=== PATIENT | male | born 1955 | race Caucasian/White ===

== ENCOUNTER 2022-06-30 12:10 | Inpatient (IN) | payer OTHER ==
[~2022-06-30] VITALS: Ht 185.4 cm; Wt 67.0 kg
[~2022-06-30 12:10] MED LIST: DIVA1TAB39 PO; HALDOL; LORA-205; QUET100T38; SIMV10TA84 PO; URSO300C9 PO
[2022-06-30] MEDS ORDERED: ADENOSINE 6 MG/2 ML INJ IV ONE ×3 (12:30→13:00)
[2022-06-30] MEDS ORDERED: METOPROLOL TARTRATE 1MG/1ML-5ML VIAL IV ONE ×2 (12:40→13:00)
[2022-06-30] MEDS ORDERED: SODIUM CHLORIDE 0.9% 1,000 ML IV ONE ×2 (13:15→14:30)
[2022-06-30 13:41] LABS: Hematocrit 28.7 % (41.0-53.0); Hemoglobin 9.1 g/dL (13.5-17.5); Mean Corpuscular Hemoglobin 26.7 pg (28.0-32.0); Mean Corpuscular Hgb Conc. 31.7 g/dL (32.0-36.0); Mean Corpuscular Volume 84.1 fL (80.0-100.0); Red Blood Cells 3.41 10^6/uL (4.5-5.90); Red Cell Distribution Width 17.3 % (11.8-14.3)
[2022-06-30 13:51] LABS: Basophils % (manual) 0 (0.0-2.0); Blast Cells 0; Eosinophils % (manual) 0 (0-7); Metamyelocytes % 0; Monocytes % (manual) 0 (0-12); Myelocytes % 0; Promyelocytes % 0; Reactive Lymphocytes 0
[2022-06-30 13:59] LABS: Lactic Acid w/Reflex 5.9 mmol/L (0.4-2.0); Potassium 3.6 mmol/L (3.5-5.1)
[2022-06-30 14:04] LABS: Albumin 2.2 g/dL (3.4-5.0); BUN/Creatinine Ratio 19.8; Bilirubin, Total 0.5 mg/dL (0.2-1.0); Calcium 7.6 mg/dL (8.5-10.1); Magnesium 2.3 mg/dL (1.6-2.6)
[2022-06-30] MEDS ORDERED: cefTRIAXone 1GM/50ML D5W 50 ML IV ONE (14:30)
[2022-06-30] MEDS ORDERED: CLINDAMYCIN 600MG IV 50 ML IV ONE (14:30)
[2022-06-30] MEDS ORDERED: ONDANSETRON HCL 4 MG/2 ML VIAL IV PRN (14:45)
[2022-06-30] MEDS ORDERED: CEFEPIME 1GM/ 50ML 50 ML IV ONE (14:45)
[2022-06-30] MEDS ORDERED: ACETAMINOPHEN 325 MG TAB PO PRN (14:45)
[2022-06-30] MEDS ORDERED: SODIUM CHLORIDE 0.9% 2,000 ML IV ONE (14:45)
[2022-06-30] MEDS ORDERED: NITROGLYCERIN 0.4 MG SL TAB SL PRN (14:45)
[2022-06-30] MEDS ORDERED: VANCOMYCIN PER PHARMACY 0 MG IV SCH ×2 (14:45→15:45)
[2022-06-30] MEDS ORDERED: PANTOPRAZOLE 40 MG/10 ML VIAL INJ IV ONE (14:45)
[2022-06-30] MEDS ORDERED: VANCOMYCIN 1GM/250ML 250 ML IV ONE (15:15)
[2022-06-30 15:29] LABS: Band Neutrophils % (manual) 3; Lymphocytes % (manual) 1 (10.0-50.0)
[2022-06-30] MEDS: SODIUM CHLORIDE 0.9% 1,000 ML IV SCH (19:49)
[2022-06-30] MEDS ORDERED: CEFEPIME 1GM/ 50ML 50 ML IV SCH (22:00)
[2022-06-30] MEDS: ASCORBIC ACID 500 MG TAB PO SCH (22:23)
[2022-06-30 23:20] VITALS: BP 136/70
[2022-07-01] MEDS: SODIUM CHLORIDE 0.9% 1,000 ML IV SCH ×3 (00:45→20:45)
[2022-07-01] MEDS ORDERED: HYDROcodone-ACET 5/325MG TAB PO PRN (03:30)
[2022-07-01 05:00] VITALS: BP 117/72
[2022-07-01 06:25] LABS: Albumin 1.8 g/dL (3.4-5.0); BUN/Creatinine Ratio 27.5; Calcium 7.4 mg/dL (8.5-10.1); Potassium 3.2 mmol/L (3.5-5.1)
[2022-07-01 06:37] LABS: Bilirubin, Total 0.4 mg/dL (0.2-1.0); Total Protein 4.4 g/dL (6.4-8.2)
[2022-07-01] MEDS: CEFEPIME 1GM/ 50ML 50 ML IV SCH ×2 (08:00→16:29)
[2022-07-01 09:00] VITALS: BP 109/55
[2022-07-01] MEDS ORDERED: VANCOMYCIN 1GM/250ML 250 ML IV ONE (09:45)
[2022-07-01] MEDS ORDERED: ENOXAPARIN SOD 40 MG/0.4 ML SYRINGE SC SCH (10:00)
[2022-07-01] MEDS: ASCORBIC ACID 500 MG TAB PO SCH ×2 (10:03→21:02)
[2022-07-01] MEDS: ZINC SULFATE 220mg CAP or TAB PO SCH (10:03)
[2022-07-01] MEDS: MULTIPLE VITAMIN TAB PO SCH (10:03)
[2022-07-01] MEDS: PANTOPRAZOLE 40 MG/10 ML VIAL INJ IV SCH (10:05)
[2022-07-01] MEDS ORDERED: ADENOSINE 6 MG/2 ML INJ IV ONE (12:42)
[2022-07-01 13:00] VITALS: BP 115/6
[2022-07-01] MEDS ORDERED: HEPARIN DRIP/D5W 100UNITS/ML 250 ML IV SCH (14:45)
[2022-07-01 17:00] VITALS: BP 165/77
[2022-07-01 17:05] LABS: Basophils # (auto) 0 10 ^3/uL (0-0.2); Basophils % (auto) 0.2 % (0.0-2.0); Eosinophils # (auto) 0 10 ^3/uL (0-0.8); Eosinophils % (auto) 0.2 % (0.0-7.0); Hematocrit 25.4 % (41.0-53.0); Hemoglobin 7.7 g/dL (13.5-17.5); Lymphocytes # (auto) 0.6 10 ^3/uL (0.4-5.4); Lymphocytes % (auto) 5.6 % (10.0-50.0); Mean Corpuscular Hemoglobin 27.6 pg (28.0-32.0); Mean Corpuscular Hgb Conc. 30.5 g/dL (32.0-36.0); Mean Corpuscular Volume 90.4 fL (80.0-100.0); Monocytes # (auto) 0.6 10 ^3/uL (0-1.3); Nucleated Red Blood Cells % 0.1 %; Red Cell Distribution Width 18.6 % (11.8-14.3); White Blood Cell 10.2 10^3/uL (4.4-10.8)
[2022-07-01 17:13] LABS: INR 1.25 (0.9-1.15); Partial Thromboplastin Time 38.2 sec (24.6-33.4)
[2022-07-01] MEDS: VANCOMYCIN 1GM/250ML 250 ML IV SCH (21:01)
[2022-07-01 22:00] VITALS: BP 131/59
[2022-07-02] MEDS: CEFEPIME 1GM/ 50ML 50 ML IV SCH ×3 (00:05→16:22)
[2022-07-02 05:00] VITALS: BP 107/49
[2022-07-02] MEDS: VANCOMYCIN 1GM/250ML 250 ML IV SCH ×2 (05:48→16:21)
[2022-07-02 07:36] LABS: INR 1.18 (0.9-1.15)
[2022-07-02] MEDS ORDERED: HEPARIN SODIUM (PORCINE) 5000 UNITS/ML 1ML VIAL IV ONE (08:15)
[2022-07-02] MEDS: SODIUM CHLORIDE 0.9% 1,000 ML IV SCH (08:16)
[2022-07-02] MEDS ORDERED: HEPARIN DRIP/D5W 100UNITS/ML 250 ML IV SCH (08:30)
[2022-07-02 09:00] VITALS: BP 140/63
[2022-07-02] MEDS: MULTIPLE VITAMIN TAB PO SCH (09:47)
[2022-07-02] MEDS: PANTOPRAZOLE 40 MG/10 ML VIAL INJ IV SCH (09:47)
[2022-07-02] MEDS: ZINC SULFATE 220mg CAP or TAB PO SCH (09:47)
[2022-07-02] MEDS: ASCORBIC ACID 500 MG TAB PO SCH ×2 (09:48→21:37)
[2022-07-02] MEDS ORDERED: POTASSIUM EFFERVESENT TAB 25 MEQ PO ONE (12:45)
[2022-07-02 13:00] VITALS: BP 135/65
[2022-07-02] MEDS: LACTATED RINGER'S 1,000 ML IV SCH ×2 (16:20→21:43)
[2022-07-02] MEDS: HEPARIN DRIP/D5W 100UNITS/ML 250 ML IV SCH (16:24)
[2022-07-02 17:00] VITALS: BP 137/76
[2022-07-02] MEDS: MORPHINE SULFATE INJ 2 MG/ml SYRG IV PRN (18:43)
[2022-07-02 22:00] VITALS: BP 140/69
[2022-07-03] MEDS: HYDROcodone-ACET 5/325MG TAB PO PRN ×3 (00:32→18:03)
[2022-07-03] MEDS: VANCOMYCIN 1GM/250ML 250 ML IV SCH ×3 (00:32→22:29)
[2022-07-03] MEDS: CEFEPIME 1GM/ 50ML 50 ML IV SCH ×3 (01:39→17:11)
[2022-07-03] MEDS: LACTATED RINGER'S 1,000 ML IV SCH ×3 (04:45→22:40)
[2022-07-03 05:00] VITALS: BP 129/61
[2022-07-03 07:45] LABS: INR 1.19 (0.9-1.15); Partial Thromboplastin Time 49.3 sec (24.6-33.4)
[2022-07-03 08:00] VITALS: BP 140/69
[2022-07-03] MEDS: HEPARIN DRIP/D5W 100UNITS/ML 250 ML IV SCH (08:20)
[2022-07-03] MEDS: ASCORBIC ACID 500 MG TAB PO SCH ×2 (08:25→21:08)
[2022-07-03] MEDS: ZINC SULFATE 220mg CAP or TAB PO SCH (08:25)
[2022-07-03] MEDS: MULTIPLE VITAMIN TAB PO SCH (08:25)
[2022-07-03] MEDS: PANTOPRAZOLE 40 MG/10 ML VIAL INJ IV SCH (08:26)
[2022-07-03] MEDS ORDERED: HEPARIN DRIP/D5W 100UNITS/ML 250 ML IV SCH ×3 (08:30→15:30)
[2022-07-03 12:00] VITALS: BP 117/63
[2022-07-03] MEDS ORDERED: HEPARIN SODIUM (PORCINE) 5000 UNITS/ML 1ML VIAL IV ONE (15:30)
[2022-07-03 16:00] VITALS: BP 132/70
[2022-07-03 22:00] VITALS: BP 127/71
[2022-07-03 23:11] LABS: INR 1.25 (0.9-1.15)
[2022-07-03 23:18] LABS: Partial Thromboplastin Time 97.9 sec (24.6-33.4)
[2022-07-04] MEDS: CEFEPIME 1GM/ 50ML 50 ML IV SCH ×3 (00:39→17:01)
[2022-07-04] MEDS ORDERED: HEPARIN DRIP/D5W 100UNITS/ML 250 ML IV SCH (01:00)
[2022-07-04] MEDS: LACTATED RINGER'S 1,000 ML IV SCH ×3 (04:58→14:43)
[2022-07-04 05:00] VITALS: BP 127/53
[2022-07-04 07:42] LABS: INR 1.22 (0.9-1.15)
[2022-07-04 09:00] VITALS: BP 148/64
[2022-07-04] MEDS: MULTIPLE VITAMIN TAB PO SCH (10:00)
[2022-07-04] MEDS: ASCORBIC ACID 500 MG TAB PO SCH ×2 (10:00→22:02)
[2022-07-04] MEDS: ZINC SULFATE 220mg CAP or TAB PO SCH (10:00)
[2022-07-04] MEDS: VANCOMYCIN 1GM/250ML 250 ML IV SCH ×2 (10:16→18:36)
[2022-07-04] MEDS: PANTOPRAZOLE 40 MG/10 ML VIAL INJ IV SCH (10:16)
[2022-07-04] MEDS ORDERED: ADENOSINE 60 MG in GIVE UN-DILUTED 0 ML IV STA (11:27)
[2022-07-04 12:13] VITALS: BP 127/67
[2022-07-04 13:00] VITALS: BP 123/69
[2022-07-04 16:17] VITALS: BP 133/61
[2022-07-04 22:00] VITALS: BP 123/74
[2022-07-05] MEDS: VANCOMYCIN 1GM/250ML 250 ML IV SCH ×2 (04:20→13:46)
[2022-07-05] MEDS: LACTATED RINGER'S 1,000 ML IV SCH ×3 (04:45→15:27)
[2022-07-05 05:00] VITALS: BP 145/70
[2022-07-05 09:00] VITALS: BP 133/77
[2022-07-05] MEDS: CEFEPIME 1GM/ 50ML 50 ML IV SCH ×3 (09:54→18:01)
[2022-07-05] MEDS: ZINC SULFATE 220mg CAP or TAB PO SCH (09:54)
[2022-07-05] MEDS: ASCORBIC ACID 500 MG TAB PO SCH ×2 (09:55→22:00)
[2022-07-05] MEDS: MULTIPLE VITAMIN TAB PO SCH (09:55)
[2022-07-05] MEDS: PANTOPRAZOLE 40 MG/10 ML VIAL INJ IV SCH (10:00)
[2022-07-05 13:00] VITALS: BP 137/81
[2022-07-05 16:00] LABS: Basophils # (auto) 0 10 ^3/uL (0-0.2); Eosinophils # (auto) 0 10 ^3/uL (0-0.8); Red Blood Cells 3.02 10^6/uL (4.5-5.90); Red Cell Distribution Width 17.7 % (11.8-14.3); White Blood Cell 11.8 10^3/uL (4.4-10.8)
[2022-07-05 16:01] LABS: Basophils % (auto) 0.3 % (0.0-2.0); Eosinophils % (auto) 0.1 % (0.0-7.0); Hemoglobin 7.7 g/dL (13.5-17.5); Lymphocytes # (auto) 0.8 10 ^3/uL (0.4-5.4); Lymphocytes % (auto) 6.4 % (10.0-50.0); Mean Corpuscular Hemoglobin 25.7 pg (28.0-32.0); Mean Corpuscular Hgb Conc. 32.3 g/dL (32.0-36.0); Mean Corpuscular Volume 79.5 fL (80.0-100.0); Monocytes # (auto) 0.7 10 ^3/uL (0-1.3); Monocytes % (auto) 6.3 % (0.0-12.0); Neutrophils # (auto) 10.2 10 ^3/uL (1.6-8.6); Neutrophils % (auto) 86.9 % (37.0-80.0)
[2022-07-05 16:27] VITALS: BP 149/66
[2022-07-05 22:00] VITALS: BP 116/67
[2022-07-06] VITALS (11 sets, daily range): BP systolic 125–141; BP diastolic 60–73
[2022-07-06] MEDS: LACTATED RINGER'S 1,000 ML IV SCH ×3 (04:45→20:45)
[2022-07-06] MEDS: CEFEPIME 1GM/ 50ML 50 ML IV SCH ×3 (11:00→16:00)
[2022-07-06] MEDS: ZINC SULFATE 220mg CAP or TAB PO SCH (11:00)
[2022-07-06] MEDS: VANCOMYCIN 1GM/250ML 250 ML IV SCH ×3 (11:00→22:22)
[2022-07-06] MEDS: PANTOPRAZOLE 40 MG/10 ML VIAL INJ IV SCH (11:00)
[2022-07-06] MEDS: MULTIPLE VITAMIN TAB PO SCH (11:00)
[2022-07-06] MEDS: ASCORBIC ACID 500 MG TAB PO SCH ×2 (11:00→22:22)
[2022-07-06] MEDS ORDERED: LIDOCAINE 1% (LOCAL ANESTH.) PF 5ml SDV ID ONE (11:15)
[2022-07-06] MEDS: CLINDAMYCIN HCL 150 MG CAP PO SCH ×2 (12:55→18:25)
[2022-07-06] MEDS: MORPHINE SULFATE INJ 2 MG/ml SYRG IV PRN (15:54)
[2022-07-06] MEDS: HYDROcodone-ACET 5/325MG TAB PO PRN (17:20)
[2022-07-06] MEDS: SODIUM CHLOR 0.9% PF (SALINE LOCK) 10ML VIAL/SYR IV SCH (22:22)
[2022-07-07] VITALS (17 sets, daily range): BP systolic 115–144; BP diastolic 64–93
[2022-07-07] MEDS: CLINDAMYCIN HCL 150 MG CAP PO SCH ×4 (00:01→17:08)
[2022-07-07] MEDS: HYDROcodone-ACET 5/325MG TAB PO PRN (00:16)
[2022-07-07] MEDS: LACTATED RINGER'S 1,000 ML IV SCH ×3 (04:45→17:09)
[2022-07-07 05:48] LABS: Eosinophils # (auto) 0 10 ^3/uL (0-0.8); Eosinophils % (auto) 0.3 % (0.0-7.0); Hematocrit 26.9 % (41.0-53.0); Lymphocytes # (auto) 0.9 10 ^3/uL (0.4-5.4); Monocytes # (auto) 0.7 10 ^3/uL (0-1.3); Red Blood Cells 3.33 10^6/uL (4.5-5.90)
[2022-07-07 05:50] LABS: Basophils # (auto) 0 10 ^3/uL (0-0.2); Basophils % (auto) 0.4 % (0.0-2.0); Lymphocytes % (auto) 7.3 % (10.0-50.0); Mean Corpuscular Hemoglobin 27.1 pg (28.0-32.0); Mean Corpuscular Hgb Conc. 33.4 g/dL (32.0-36.0); Monocytes % (auto) 5.9 % (0.0-12.0); Neutrophils # (auto) 10.6 10 ^3/uL (1.6-8.6); Neutrophils % (auto) 86.1 % (37.0-80.0); Red Cell Distribution Width 17.5 % (11.8-14.3); White Blood Cell 12.2 10^3/uL (4.4-10.8)
[2022-07-07 06:49] LABS: INR 1.21 (0.9-1.15); Partial Thromboplastin Time 34.2 sec (24.6-33.4)
[2022-07-07] MEDS ORDERED: ceFAZolin 1GM/50ML 100 ML IV ONE (06:51)
[2022-07-07] MEDS ORDERED: BUPIVACAINE 0.5% P/F INJ 10 ML VIAL ONE (07:32)
[2022-07-07] MEDS ORDERED: SUCCINYLCHOLINE CHLORIDE 20 MG/ML 10ML VIAL IV ONE (07:33)
[2022-07-07] MEDS ORDERED: MORPHINE SULF PF 5 MG/10 ML VIAL ONE (07:37)
[2022-07-07] MEDS ORDERED: fentaNYL CITRATE 100 MCG/2 ML VL ONE (07:37)
[2022-07-07] MEDS ORDERED: MIDAZOLAM HCL 2MG/2ML 2ml VIAL (1mg/ml) ONE (07:37)
[2022-07-07] MEDS ORDERED: POVIDONE IODINE 10 % TOPICAL OINT 30GM TOP ONE (08:58)
[2022-07-07] MEDS ORDERED: diphenhdrAMINE HCL 50 MG/1 ML VL IV PRN (09:15)
[2022-07-07] MEDS ORDERED: NALOXONE HCL 0.4 MG/ML VIAL IV PRN (09:15)
[2022-07-07] MEDS ORDERED: LABETALOL HCL 5 MG/ML 4ML SYRINGE IV PRN (09:15)
[2022-07-07] MEDS ORDERED: DexAMETHasone SOD PHOS 10MG/1ML VIAL INJ IV PRN (09:15)
[2022-07-07] MEDS ORDERED: MIDAZOLAM HCL 2MG/2ML 2ml VIAL (1mg/ml) IV PRN (09:15)
[2022-07-07] MEDS ORDERED: NALBUPHINE HCL 10 MG/1ml INJECTION SUBCUT ONE (09:15)
[2022-07-07] MEDS ORDERED: ePHEDrine SULFATE 50 MG/ML AMP IV PRN (09:15)
[2022-07-07] MEDS ORDERED: ONDANSETRON HCL 4 MG/2 ML VIAL IV PRN ×2 (09:15)
[2022-07-07] MEDS ORDERED: HYDROmorphone HCL 2 MG/ML VL/or syr IV PRN (09:15)
[2022-07-07] MEDS: VANCOMYCIN 1GM/250ML 250 ML IV SCH ×2 (11:24→18:11)
[2022-07-07] MEDS: PANTOPRAZOLE 40 MG/10 ML VIAL INJ IV SCH (11:24)
[2022-07-07] MEDS: CEFEPIME 1GM/ 50ML 50 ML IV SCH ×3 (11:24→17:08)
[2022-07-07] MEDS: ASCORBIC ACID 500 MG TAB PO SCH ×2 (11:25→22:00)
[2022-07-07] MEDS: MULTIPLE VITAMIN TAB PO SCH (11:25)
[2022-07-07] MEDS: SODIUM CHLOR 0.9% PF (SALINE LOCK) 10ML VIAL/SYR IV SCH ×2 (11:25→22:00)
[2022-07-07] MEDS: ZINC SULFATE 220mg CAP or TAB PO SCH (11:25)
[2022-07-07] MEDS: MORPHINE SULFATE INJ 2 MG/ml SYRG IV PRN (14:47)
[2022-07-08] VITALS (13 sets, daily range): BP systolic 118–149; BP diastolic 45–100
[2022-07-08] MEDS: MORPHINE SULFATE INJ 2 MG/ml SYRG IV PRN ×3 (04:41→15:24)
[2022-07-08] MEDS: VANCOMYCIN 1GM/250ML 250 ML IV SCH ×2 (04:42→14:43)
[2022-07-08] MEDS: LACTATED RINGER'S 1,000 ML IV SCH ×3 (04:45→20:45)
[2022-07-08] MEDS: CLINDAMYCIN HCL 150 MG CAP PO SCH ×5 (06:00→23:30)
[2022-07-08] MEDS: CEFEPIME 1GM/ 50ML 50 ML IV SCH ×4 (08:41→23:30)
[2022-07-08] MEDS: ZINC SULFATE 220mg CAP or TAB PO SCH (10:33)
[2022-07-08] MEDS: MULTIPLE VITAMIN TAB PO SCH (10:33)
[2022-07-08] MEDS: PANTOPRAZOLE 40 MG/10 ML VIAL INJ IV SCH (10:34)
[2022-07-08] MEDS: SODIUM CHLOR 0.9% PF (SALINE LOCK) 10ML VIAL/SYR IV SCH ×2 (10:38→22:27)
[2022-07-08] MEDS: ASCORBIC ACID 500 MG TAB PO SCH ×2 (10:38→22:28)
[2022-07-09] MEDS: VANCOMYCIN 1GM/250ML 250 ML IV SCH ×3 (00:55→21:20)
[2022-07-09] MEDS: LACTATED RINGER'S 1,000 ML IV SCH ×3 (04:45→21:19)
[2022-07-09 05:00] VITALS: BP 155/74
[2022-07-09] MEDS: CLINDAMYCIN HCL 150 MG CAP PO SCH ×3 (06:45→18:19)
[2022-07-09] MEDS: SODIUM CHLOR 0.9% PF (SALINE LOCK) 10ML VIAL/SYR IV SCH ×2 (09:18→21:19)
[2022-07-09] MEDS: ASCORBIC ACID 500 MG TAB PO SCH ×2 (09:18→21:19)
[2022-07-09] MEDS: ZINC SULFATE 220mg CAP or TAB PO SCH (09:18)
[2022-07-09] MEDS: PANTOPRAZOLE 40 MG/10 ML VIAL INJ IV SCH (09:18)
[2022-07-09] MEDS: MULTIPLE VITAMIN TAB PO SCH (09:18)
[2022-07-09] MEDS: CEFEPIME 1GM/ 50ML 50 ML IV SCH ×2 (09:18→16:25)
[2022-07-09 09:19] VITALS: BP 153/84
[2022-07-09] MEDS: MORPHINE SULFATE INJ 2 MG/ml SYRG IV PRN ×2 (09:24→13:53)
[2022-07-09] MEDS ORDERED: DONE1TAB88 PO (11:41)
[2022-07-09] MEDS ORDERED: BUSP5TAB51 PO (11:44)
[2022-07-09] MEDS ORDERED: RIVSET PO (11:44)
[2022-07-09] MEDS ORDERED: METO25TA5 PO ×2 (11:51→11:52)
[2022-07-09 12:36] VITALS: BP 155/75
[2022-07-09 16:03] VITALS: BP 152/75
[2022-07-09 22:00] VITALS: BP 143/73
[2022-07-10] MEDS: LACTATED RINGER'S 1,000 ML IV SCH ×3 (04:45→20:45)
[2022-07-10 05:00] VITALS: BP 166/75
[2022-07-10] MEDS: VANCOMYCIN 1GM/250ML 250 ML IV SCH ×2 (05:22→16:19)
[2022-07-10] MEDS: CEFEPIME 2 GM in SODIUM CHL 0.9% 50 ML IV SCH ×3 (05:24→22:26)
[2022-07-10] MEDS ORDERED: hydrALAZINE HCL 20 MG/ML VL IV PRN (06:45)
[2022-07-10 08:36] VITALS: BP 146/75
[2022-07-10 08:57] LABS: Basophils # (auto) 0 10 ^3/uL (0-0.2); Basophils % (auto) 0.3 % (0.0-2.0); Eosinophils # (auto) 0 10 ^3/uL (0-0.8); Red Blood Cells 3.34 10^6/uL (4.5-5.90)
[2022-07-10 08:58] LABS: Eosinophils % (auto) 0.1 % (0.0-7.0); Hematocrit 27.2 % (41.0-53.0); Hemoglobin 8.8 g/dL (13.5-17.5); Lymphocytes # (auto) 1.1 10 ^3/uL (0.4-5.4); Lymphocytes % (auto) 6.9 % (10.0-50.0); Mean Corpuscular Hemoglobin 26.4 pg (28.0-32.0); Mean Corpuscular Hgb Conc. 32.5 g/dL (32.0-36.0); Mean Corpuscular Volume 81.4 fL (80.0-100.0); Monocytes # (auto) 0.8 10 ^3/uL (0-1.3); Monocytes % (auto) 5.3 % (0.0-12.0); Neutrophils # (auto) 13.2 10 ^3/uL (1.6-8.6); Neutrophils % (auto) 87.4 % (37.0-80.0); Red Cell Distribution Width 17.9 % (11.8-14.3); White Blood Cell 15.1 10^3/uL (4.4-10.8)
[2022-07-10] MEDS: MULTIPLE VITAMIN TAB PO SCH (10:16)
[2022-07-10] MEDS: PANTOPRAZOLE 40 MG/10 ML VIAL INJ IV SCH (10:16)
[2022-07-10] MEDS: ASCORBIC ACID 500 MG TAB PO SCH ×2 (10:16→22:26)
[2022-07-10] MEDS: SODIUM CHLOR 0.9% PF (SALINE LOCK) 10ML VIAL/SYR IV SCH ×2 (10:16→22:26)
[2022-07-10] MEDS: ZINC SULFATE 220mg CAP or TAB PO SCH (10:16)
[2022-07-10 12:29] VITALS: BP 131/69
[2022-07-10] MEDS: HYDROcodone-ACET 5/325MG TAB PO PRN (15:20)
[2022-07-10 16:33] VITALS: BP 158/78
[2022-07-10 22:00] VITALS: BP 148/75
[2022-07-10] MEDS: MORPHINE SULFATE INJ 2 MG/ml SYRG IV PRN ×2 (22:31)
[2022-07-11] MEDS: VANCOMYCIN 1GM/250ML 250 ML IV SCH ×2 (02:37→20:20)
[2022-07-11] MEDS: LACTATED RINGER'S 1,000 ML IV SCH ×3 (04:45→20:20)
[2022-07-11 05:00] VITALS: BP 156/72
[2022-07-11] MEDS: CEFEPIME 2 GM in SODIUM CHL 0.9% 50 ML IV SCH ×3 (06:00→22:20)
[2022-07-11] MEDS ORDERED: CATHFLO ACTIVASE (ALTEPLASE) 2 MG VIAL IV ONE (08:15)
[2022-07-11 09:00] VITALS: BP 139/69
[2022-07-11] MEDS: MULTIPLE VITAMIN TAB PO SCH (09:59)
[2022-07-11] MEDS: ZINC SULFATE 220mg CAP or TAB PO SCH (09:59)
[2022-07-11] MEDS: PANTOPRAZOLE 40 MG/10 ML VIAL INJ IV SCH (09:59)
[2022-07-11] MEDS: SODIUM CHLOR 0.9% PF (SALINE LOCK) 10ML VIAL/SYR IV SCH ×2 (09:59→22:19)
[2022-07-11] MEDS: ASCORBIC ACID 500 MG TAB PO SCH ×2 (09:59→22:19)
[2022-07-11 13:00] VITALS: BP 133/66
[2022-07-11 17:00] VITALS: BP 149/69
[2022-07-11 22:00] VITALS: BP 143/73
[2022-07-12] MEDS: LACTATED RINGER'S 1,000 ML IV SCH ×3 (04:45→20:45)
[2022-07-12 05:00] VITALS: BP 155/76
[2022-07-12] MEDS: VANCOMYCIN 1GM/250ML 250 ML IV SCH ×2 (05:00→15:42)
[2022-07-12] MEDS: CEFEPIME 2 GM in SODIUM CHL 0.9% 50 ML IV SCH (06:50)
[2022-07-12 09:00] VITALS: BP 147/80
[2022-07-12] MEDS: PANTOPRAZOLE 40 MG/10 ML VIAL INJ IV SCH (10:22)
[2022-07-12] MEDS: MULTIPLE VITAMIN TAB PO SCH (10:22)
[2022-07-12] MEDS: ASCORBIC ACID 500 MG TAB PO SCH (10:22)
[2022-07-12] MEDS: ZINC SULFATE 220mg CAP or TAB PO SCH (10:22)
[2022-07-12] MEDS: SODIUM CHLOR 0.9% PF (SALINE LOCK) 10ML VIAL/SYR IV SCH (10:22)
[2022-07-12 13:00] VITALS: BP 146/74
[2022-07-12 15:50] LABS: Hemoglobin 8.3 g/dL (13.5-17.5); Lymphocytes # (auto) 0.8 10 ^3/uL (0.4-5.4); Monocytes # (auto) 0.8 10 ^3/uL (0-1.3); Neutrophils # (auto) 10.1 10 ^3/uL (1.6-8.6); White Blood Cell 11.8 10^3/uL (4.4-10.8)
[2022-07-12 15:52] LABS: Basophils # (auto) 0 10 ^3/uL (0-0.2); Basophils % (auto) 0.4 % (0.0-2.0); Eosinophils # (auto) 0 10 ^3/uL (0-0.8); Eosinophils % (auto) 0.4 % (0.0-7.0); Hematocrit 26.3 % (41.0-53.0); Lymphocytes % (auto) 6.7 % (10.0-50.0); Mean Corpuscular Hemoglobin 25.7 pg (28.0-32.0); Mean Corpuscular Hgb Conc. 31.4 g/dL (32.0-36.0); Mean Corpuscular Volume 81.9 fL (80.0-100.0); Monocytes % (auto) 6.5 % (0.0-12.0); Red Blood Cells 3.22 10^6/uL (4.5-5.90); Red Cell Distribution Width 17.8 % (11.8-14.3)
[2022-07-12 16:05] LABS: BUN/Creatinine Ratio 31.7; Calcium 8.3 mg/dL (8.5-10.1); Potassium 3.5 mmol/L (3.5-5.1)
[2022-07-12 17:00] VITALS: BP 135/70
[2022-07-12] MEDS: HYDROcodone-ACET 5/325MG TAB PO PRN (17:26)
[2022-07-12] MEDS ORDERED: Juven Fruit Punch Powder PACKET 28.8gm PO SCH (18:00)
[2022-07-12] MEDS ORDERED: Ensure HIGH Protein Chocolate 8oz Bottle PO SCH (18:00)
== END 2022-07-12 21:27 | DRG 476 ==
LOC: EDBD 12:10 → EDUNIT# 12:10 → ER 12:10 → TELE 14:40 → TELE-EAST 23:20 → EAST 07-09 11:58
PROVIDERS: ADMIT Nurse Practitioner Family; ATTEND Internal Medicine
PROC: 02HV33Z Insertion of Infusion Device into Superior Vena Cava, Percutaneous Approach (ICD-10-PCS; 2022-07-06)
PROC: B548ZZA Ultrasonography of Superior Vena Cava, Guidance (ICD-10-PCS; 2022-07-06)
PROC: 30233K1 Transfusion of Nonautologous Frozen Plasma into Peripheral Vein, Percutaneous Approach (ICD-10-PCS; 2022-07-06)
PROC: 30233N1 Transfusion of Nonautologous Red Blood Cells into Peripheral Vein, Percutaneous Approach (ICD-10-PCS; 2022-07-06)
PROC: 0Y6J0Z1 Detachment at Left Lower Leg, High, Open Approach (ICD-10-PCS; principal; 2022-07-07 07:40)
DX: M86.172 Other acute osteomyelitis, left ankle and foot (principal); D64.9 Anemia, unspecified; F20.9 Schizophrenia, unspecified; I10 Essential (primary) hypertension; K76.9 Liver disease, unspecified; R56.9 Unspecified convulsions; F10.10 Alcohol abuse, uncomplicated; B96.20 Unspecified Escherichia coli [E. coli] as the cause of diseases classified elsewhere; I73.9 Peripheral vascular disease, unspecified; F03.90 Unspecified dementia, unspecified severity, without behavioral disturbance, psychotic disturbance, mood disturbance, and anxiety; F32.A Depression, unspecified; Z86.73 Personal history of transient ischemic attack (TIA), and cerebral infarction without residual deficits; Z87.11 Personal history of peptic ulcer disease; Z87.440 Personal history of urinary (tract) infections; Z87.442 Personal history of urinary calculi
CPT/HCPCS: 36415; 36569; 71045; 73700; 78452; 80048; 80053; 80202; 82565; 83605; 83735; 83880; 84484; 85007; 85025; 85027; 85610; 85730; 86850; 86900; 86901; 86920; 87040; 87077; 87081; 87186; 87205; 87426; 93005; 93017; 93306; 93925; 96361; 96365; 96375; 97110; 97116; 97163; 97530; 99291; C9113; G0378; J0153; J0330; J0690; J0696; J2250; J3490

== ENCOUNTER 2022-09-13 11:54 | Inpatient (IN) | payer MEDICARE, OTHER ==
[~2022-09-13] VITALS: Ht 185.4 cm; Wt 61.5 kg
[~2022-09-13 11:54] MED LIST changes: +BUSP5TAB51 PO; -DIVA1TAB39 PO; +DONE1TAB88 PO; -HALDOL; -LORA-205; +METO25TA5 PO; -QUET100T38; +RIVSET PO; -SIMV10TA84 PO; -URSO300C9 PO
[2022-09-13] MEDS ORDERED: NITROGLYCERIN 0.4 MG SL TAB SL PRN (15:00)
[2022-09-13] MEDS ORDERED: MORPHINE SULFATE INJ 2 MG/ml SYRG IV PRN (15:00)
[2022-09-13] MEDS ORDERED: ONDANSETRON HCL 4 MG/2 ML VIAL IV PRN (15:30)
[2022-09-13] MEDS ORDERED: ACETAMINOPHEN 325 MG TAB PO PRN (15:30)
[2022-09-13] MEDS ORDERED: VANCOMYCIN PER PHARMACY 0 MG IV SCH (15:30)
[2022-09-13] MEDS ORDERED: VANCOMYCIN 1GM/250ML 250 ML IV ONE (15:45)
[2022-09-13 16:00] VITALS: BP 108/64
[2022-09-13 16:29] LABS: BUN/Creatinine Ratio 24.6 (10.0-20.0); Calcium 9.2 mg/dL (8.5-10.1); Potassium 4.2 mmol/L (3.5-5.1)
[2022-09-13] MEDS: SODIUM CHLORIDE 0.9% 1,000 ML IV SCH (16:38)
[2022-09-13 16:48] LABS: INR 1.1 (0.9-1.15); Partial Thromboplastin Time 31.3 sec (24.6-33.4)
[2022-09-13 17:04] LABS: Eosinophils # (auto) 0.1 10 ^3/uL (0-0.8); Monocytes # (auto) 0.9 10 ^3/uL (0-1.3)
[2022-09-13 17:07] LABS: Basophils # (auto) 0 10 ^3/uL (0-0.2); Basophils % (auto) 0.3 % (0.0-2.0); Eosinophils % (auto) 0.7 % (0.0-7.0); Hematocrit 26.1 % (41.0-53.0); Hemoglobin 8.3 g/dL (13.5-17.5); Lymphocytes # (auto) 1.1 10 ^3/uL (0.4-5.4); Lymphocytes % (auto) 8.6 % (10.0-50.0); Mean Corpuscular Hemoglobin 24.2 pg (28.0-32.0); Mean Corpuscular Volume 75.7 fL (80.0-100.0); Monocytes % (auto) 7.3 % (0.0-12.0); Neutrophils # (auto) 10.3 10 ^3/uL (1.6-8.6); Neutrophils % (auto) 83.1 % (37.0-80.0); Red Blood Cells 3.45 10^6/uL (4.5-5.90); Red Cell Distribution Width 16.7 % (11.8-14.3); White Blood Cell 12.4 10^3/uL (4.4-10.8)
[2022-09-13 22:00] VITALS: BP 110/62
[2022-09-13] MEDS: METOPROLOL TARTRATE 25 MG TAB PO SCH (22:19)
[2022-09-13] MEDS: DONEPEZIL HYDROCHLORIDE 5 MG TAB PO SCH (22:19)
[2022-09-13] MEDS: PIPERACILLIN-TAZOB 3.375GM 100 ML IV SCH (22:20)
[2022-09-13] MEDS: ASCORBIC ACID 500 MG TAB PO SCH (22:20)
[2022-09-13] MEDS: busPIRone HCL 10 MG TAB PO SCH (22:20)
[2022-09-14] MEDS: VANCOMYCIN 1GM/250ML 250 ML IV SCH ×3 (02:00→23:12)
[2022-09-14] MEDS: SODIUM CHLORIDE 0.9% 1,000 ML IV SCH ×3 (04:50→22:05)
[2022-09-14 05:00] VITALS: BP 109/57
[2022-09-14 05:45] LABS: Eosinophils # (auto) 0.1 10 ^3/uL (0-0.8); Hematocrit 23.7 % (41.0-53.0); Hemoglobin 7.6 g/dL (13.5-17.5); Lymphocytes # (auto) 1.1 10 ^3/uL (0.4-5.4); Neutrophils # (auto) 10.3 10 ^3/uL (1.6-8.6); Neutrophils % (auto) 81.5 % (37.0-80.0); White Blood Cell 12.6 10^3/uL (4.4-10.8)
[2022-09-14 05:54] LABS: Albumin 2.4 g/dL (3.4-5.0); Calcium 8.6 mg/dL (8.5-10.1); Potassium 3.7 mmol/L (3.5-5.1)
[2022-09-14 05:56] LABS: Basophils # (auto) 0.1 10 ^3/uL (0-0.2); Basophils % (auto) 0.6 % (0.0-2.0); Eosinophils % (auto) 0.8 % (0.0-7.0); Lymphocytes % (auto) 8.9 % (10.0-50.0); Mean Corpuscular Hemoglobin 24.2 pg (28.0-32.0); Mean Corpuscular Volume 75.7 fL (80.0-100.0); Monocytes % (auto) 8.2 % (0.0-12.0); Red Blood Cells 3.13 10^6/uL (4.5-5.90); Red Cell Distribution Width 17.2 % (11.8-14.3)
[2022-09-14 06:00] LABS: BUN/Creatinine Ratio 26.2 (10.0-20.0); Bilirubin, Total 0.5 mg/dL (0.2-1.0); Total Protein 5.9 g/dL (6.4-8.2)
[2022-09-14] MEDS: PIPERACILLIN-TAZOB 3.375GM 100 ML IV SCH ×2 (06:08→13:32)
[2022-09-14 09:00] VITALS: BP 105/54
[2022-09-14] MEDS: MULTIPLE VITAMIN TAB PO SCH (09:42)
[2022-09-14] MEDS: METOPROLOL TARTRATE 25 MG TAB PO SCH ×2 (09:42→21:53)
[2022-09-14] MEDS: ZINC SULFATE 220mg CAP or TAB PO SCH (09:42)
[2022-09-14] MEDS: ASCORBIC ACID 500 MG TAB PO SCH ×2 (09:42→21:53)
[2022-09-14] MEDS: busPIRone HCL 10 MG TAB PO SCH ×2 (09:43→21:54)
[2022-09-14 13:00] VITALS: BP 97/48
[2022-09-14] MEDS ORDERED: MEROPENEM 1GM IVPB 100 ML IV ONE (14:00)
[2022-09-14 17:00] VITALS: BP 103/51
[2022-09-14 20:20] VITALS: BP 113/56
[2022-09-14] MEDS: DONEPEZIL HYDROCHLORIDE 5 MG TAB PO SCH (21:53)
[2022-09-14] MEDS: MEROPENEM 1GM IVPB 100 ML IV SCH (21:53)
[2022-09-14] MEDS: MUPIROCIN 2% OINT 15gm or 22gm FOR MRSA NARES EACHNOSTRI SCH (21:55)
[2022-09-14 22:00] VITALS: BP 113/56
[2022-09-15 05:00] VITALS: BP 109/57
[2022-09-15 05:33] LABS: BUN/Creatinine Ratio 29.8 (10.0-20.0); Calcium 8.8 mg/dL (8.5-10.1)
[2022-09-15 05:49] LABS: Eosinophils # (auto) 0.1 10 ^3/uL (0-0.8); Mean Corpuscular Hemoglobin 24.3 pg (28.0-32.0); Mean Corpuscular Hgb Conc. 32.5 g/dL (32.0-36.0); White Blood Cell 11.2 10^3/uL (4.4-10.8)
[2022-09-15 05:51] LABS: Basophils # (auto) 0 10 ^3/uL (0-0.2); Basophils % (auto) 0.4 % (0.0-2.0); Eosinophils % (auto) 1.2 % (0.0-7.0); Hematocrit 23.8 % (41.0-53.0); Hemoglobin 7.7 g/dL (13.5-17.5); Lymphocytes % (auto) 8.8 % (10.0-50.0); Mean Corpuscular Volume 74.7 fL (80.0-100.0); Neutrophils % (auto) 80.6 % (37.0-80.0); Red Blood Cells 3.19 10^6/uL (4.5-5.90)
[2022-09-15] MEDS: MEROPENEM 1GM IVPB 100 ML IV SCH ×3 (06:48→22:30)
[2022-09-15] MEDS: VANCOMYCIN 1GM/250ML 250 ML IV SCH ×2 (08:29→17:51)
[2022-09-15] MEDS: MUPIROCIN 2% OINT 15gm or 22gm FOR MRSA NARES EACHNOSTRI SCH ×2 (08:32→22:30)
[2022-09-15] MEDS ORDERED: POVIDONE IODINE 10 % TOPICAL OINT 30GM TOP ONE (08:56)
[2022-09-15 09:01] VITALS: BP 100/43
[2022-09-15] MEDS ORDERED: MIDAZOLAM HCL 2MG/2ML 2ml VIAL (1mg/ml) ONE (09:29)
[2022-09-15] MEDS ORDERED: HYDROmorphone HCL 2 MG/ML VL/or syr ONE (09:29)
[2022-09-15] MEDS ORDERED: fentaNYL CITRATE 100 MCG/2 ML VL ONE (09:29)
[2022-09-15] MEDS ORDERED: LIDOCAINE 2% (LOCAL ANESTH.) PF 5ml SDV ONE (09:30)
[2022-09-15] MEDS ORDERED: GLYCOPYRROLATE 0.2 MG/ML 1ML VIAL ONE (09:30)
[2022-09-15] MEDS ORDERED: ONDANSETRON HCL 4 MG/2 ML VIAL ONE (09:30)
[2022-09-15] MEDS ORDERED: ePHEDrine SULFATE 50 MG/ML AMP ONE (09:30)
[2022-09-15] MEDS ORDERED: PROPOFOL 10 MG/ML 20 ML IV ONE (09:30)
[2022-09-15] MEDS: MULTIPLE VITAMIN TAB PO SCH (10:33)
[2022-09-15] MEDS: ASCORBIC ACID 500 MG TAB PO SCH ×2 (10:33→22:31)
[2022-09-15] MEDS: METOPROLOL TARTRATE 25 MG TAB PO SCH ×2 (10:33→22:31)
[2022-09-15] MEDS: busPIRone HCL 10 MG TAB PO SCH ×2 (10:33→22:30)
[2022-09-15] MEDS: ZINC SULFATE 220mg CAP or TAB PO SCH (10:33)
[2022-09-15] MEDS ORDERED: ONDANSETRON HCL 4 MG/2 ML VIAL IV PRN (11:30)
[2022-09-15] MEDS ORDERED: HYDROmorphone HCL 2 MG/ML VL/or syr IV PRN (11:30)
[2022-09-15] MEDS: SODIUM CHLORIDE 0.9% 1,000 ML IV SCH (12:55)
[2022-09-15 17:00] VITALS: BP_SYST 125; BP_SYST 89; BP_DIAS 55; BP_DIAS 58
[2022-09-15 18:36] VITALS: BP 111/65
[2022-09-15 19:40] VITALS: BP 104/66
[2022-09-15 22:00] VITALS: BP 104/66
[2022-09-15] MEDS: DONEPEZIL HYDROCHLORIDE 5 MG TAB PO SCH (22:31)
[2022-09-16] MEDS: VANCOMYCIN 1GM/250ML 250 ML IV SCH ×2 (04:40→13:52)
[2022-09-16 05:00] VITALS: BP 102/56
[2022-09-16] MEDS: MEROPENEM 1GM IVPB 100 ML IV SCH (06:34)
[2022-09-16 08:00] VITALS: BP 121/65
[2022-09-16 08:15] VITALS: BP 121/65
[2022-09-16] MEDS: MULTIPLE VITAMIN TAB PO SCH (11:16)
[2022-09-16] MEDS: busPIRone HCL 10 MG TAB PO SCH ×2 (11:17→22:27)
[2022-09-16] MEDS: ASCORBIC ACID 500 MG TAB PO SCH ×2 (11:17→22:27)
[2022-09-16] MEDS: ZINC SULFATE 220mg CAP or TAB PO SCH (11:17)
[2022-09-16] MEDS: METOPROLOL TARTRATE 25 MG TAB PO SCH ×2 (11:18→22:27)
[2022-09-16] MEDS: MUPIROCIN 2% OINT 15gm or 22gm FOR MRSA NARES EACHNOSTRI SCH ×2 (11:27→22:26)
[2022-09-16] MEDS: SODIUM CHLORIDE 0.9% 1,000 ML IV SCH ×2 (11:42→22:33)
[2022-09-16 12:15] VITALS: BP 120/57
[2022-09-16 13:47] LABS: Potassium 3.7 mmol/L (3.5-5.1)
[2022-09-16 13:53] LABS: Urine Bacteria NONE SEEN /hpf (None Seen); Urine Blood Negative /uL (Negative); Urine Budding Yeast MODERATE /hpf (None Seen); Urine Specific Gravity 1.019 (1.001-1.035); Urine WBC 8 /hpf (0 - 3)
[2022-09-16 13:57] LABS: Albumin 2.5 g/dL (3.4-5.0); Bilirubin, Total 0.4 mg/dL (0.2-1.0); Calcium 8.6 mg/dL (8.5-10.1); Total Protein 6.4 g/dL (6.4-8.2)
[2022-09-16 14:59] LABS: Basophils # (auto) 0 10 ^3/uL (0-0.2); Basophils % (auto) 0.2 % (0.0-2.0); Eosinophils # (auto) 0 10 ^3/uL (0-0.8); Eosinophils % (auto) 0.1 % (0.0-7.0); Hematocrit 30.5 % (41.0-53.0); Hemoglobin 9.4 g/dL (13.5-17.5); Lymphocytes # (auto) 1.2 10 ^3/uL (0.4-5.4); Lymphocytes % (auto) 7.6 % (10.0-50.0); Mean Corpuscular Hemoglobin 24.1 pg (28.0-32.0); Mean Corpuscular Volume 77.7 fL (80.0-100.0); Monocytes # (auto) 0.9 10 ^3/uL (0-1.3); Monocytes % (auto) 5.8 % (0.0-12.0); Neutrophils # (auto) 14.1 10 ^3/uL (1.6-8.6); Neutrophils % (auto) 86.3 % (37.0-80.0); Nucleated Red Blood Cells % 0.1 %; Red Blood Cells 3.92 10^6/uL (4.5-5.90); Red Cell Distribution Width 17.2 % (11.8-14.3); White Blood Cell 16.3 10^3/uL (4.4-10.8)
[2022-09-16 16:15] VITALS: BP 106/55
[2022-09-16 22:00] VITALS: BP 111/59
[2022-09-16] MEDS: DONEPEZIL HYDROCHLORIDE 5 MG TAB PO SCH (22:27)
[2022-09-16] MEDS: CEFEPIME 2 GM in SODIUM CHL 0.9% 50 ML IV SCH (22:28)
[2022-09-16] MEDS: HYDROcodone-ACET 5/325MG TAB PO PRN (22:38)
[2022-09-17] MEDS: VANCOMYCIN 1GM/250ML 250 ML IV SCH ×3 (00:27→20:09)
[2022-09-17] MEDS: MORPHINE SULFATE INJ 2 MG/ml SYRG IV PRN ×2 (00:28→23:08)
[2022-09-17 05:00] VITALS: BP 117/57
[2022-09-17 08:00] VITALS: BP 119/74
[2022-09-17] MEDS: CEFEPIME 2 GM in SODIUM CHL 0.9% 50 ML IV SCH ×2 (08:19→21:48)
[2022-09-17] MEDS: MUPIROCIN 2% OINT 15gm or 22gm FOR MRSA NARES EACHNOSTRI SCH ×2 (08:19→21:48)
[2022-09-17 08:58] VITALS: BP 120/64
[2022-09-17 10:01] LABS: Basophils # (auto) 0 10 ^3/uL (0-0.2); Basophils % (auto) 0.3 % (0.0-2.0); Eosinophils # (auto) 0 10 ^3/uL (0-0.8); Hemoglobin 8.8 g/dL (13.5-17.5); Lymphocytes % (auto) 7.5 % (10.0-50.0)
[2022-09-17 10:05] LABS: Eosinophils % (auto) 0.4 % (0.0-7.0); Hematocrit 26.8 % (41.0-53.0); Mean Corpuscular Hemoglobin 24.8 pg (28.0-32.0); Mean Corpuscular Hgb Conc. 32.8 g/dL (32.0-36.0); Mean Corpuscular Volume 75.7 fL (80.0-100.0); Monocytes # (auto) 1.1 10 ^3/uL (0-1.3); Monocytes % (auto) 7.7 % (0.0-12.0); Neutrophils # (auto) 11.6 10 ^3/uL (1.6-8.6); Neutrophils % (auto) 84.1 % (37.0-80.0); Red Blood Cells 3.54 10^6/uL (4.5-5.90); Red Cell Distribution Width 17.4 % (11.8-14.3); White Blood Cell 13.8 10^3/uL (4.4-10.8)
[2022-09-17 10:31] LABS: Calcium 8.4 mg/dL (8.5-10.1); Potassium 4.1 mmol/L (3.5-5.1)
[2022-09-17 10:35] LABS: BUN/Creatinine Ratio 48.8 (10.0-20.0)
[2022-09-17] MEDS: busPIRone HCL 10 MG TAB PO SCH ×2 (11:01→21:49)
[2022-09-17] MEDS: ZINC SULFATE 220mg CAP or TAB PO SCH (11:01)
[2022-09-17] MEDS: METOPROLOL TARTRATE 25 MG TAB PO SCH ×2 (11:01→21:50)
[2022-09-17] MEDS: MULTIPLE VITAMIN TAB PO SCH (11:01)
[2022-09-17] MEDS: ASCORBIC ACID 500 MG TAB PO SCH ×2 (11:01→21:50)
[2022-09-17 12:52] VITALS: BP 106/60
[2022-09-17] MEDS: SODIUM CHLORIDE 0.9% 1,000 ML IV SCH (16:41)
[2022-09-17] MEDS: HYDROcodone-ACET 5/325MG TAB PO PRN ×2 (16:55→21:49)
[2022-09-17 17:08] VITALS: BP 131/71
[2022-09-17] MEDS: DONEPEZIL HYDROCHLORIDE 5 MG TAB PO SCH (21:49)
[2022-09-17 22:00] VITALS: BP 123/61
[2022-09-18] MEDS: HYDROcodone-ACET 5/325MG TAB PO PRN ×2 (01:58→20:48)
[2022-09-18] MEDS: SODIUM CHLORIDE 0.9% 1,000 ML IV SCH ×2 (02:10→16:18)
[2022-09-18 05:00] VITALS: BP 110/59
[2022-09-18] MEDS: VANCOMYCIN 1GM/250ML 250 ML IV SCH ×2 (05:35→20:50)
[2022-09-18 08:00] VITALS: BP 100/54
[2022-09-18] MEDS ORDERED: VANCOMYCIN PER PHARMACY 0 MG IV SCH (09:45)
[2022-09-18] MEDS: MUPIROCIN 2% OINT 15gm or 22gm FOR MRSA NARES EACHNOSTRI SCH ×2 (11:26→22:35)
[2022-09-18] MEDS: MULTIPLE VITAMIN TAB PO SCH (11:27)
[2022-09-18] MEDS: ASCORBIC ACID 500 MG TAB PO SCH ×2 (11:27→22:35)
[2022-09-18] MEDS: ZINC SULFATE 220mg CAP or TAB PO SCH (11:27)
[2022-09-18] MEDS: busPIRone HCL 10 MG TAB PO SCH ×2 (11:28→22:35)
[2022-09-18] MEDS: METOPROLOL TARTRATE 25 MG TAB PO SCH ×2 (11:29→22:34)
[2022-09-18 16:00] VITALS: BP 107/52
[2022-09-18 22:00] VITALS: BP 103/52
[2022-09-18] MEDS: DONEPEZIL HYDROCHLORIDE 5 MG TAB PO SCH (22:35)
[2022-09-18] MEDS: MORPHINE SULFATE INJ 2 MG/ml SYRG IV PRN (23:56)
[2022-09-19] MEDS: SODIUM CHLORIDE 0.9% 1,000 ML IV SCH (04:50)
[2022-09-19 05:00] VITALS: BP 141/66
[2022-09-19 09:00] VITALS: BP 113/60
[2022-09-19] MEDS: VANCOMYCIN 1GM/250ML 250 ML IV SCH ×2 (09:37→20:27)
[2022-09-19] MEDS: MULTIPLE VITAMIN TAB PO SCH (09:37)
[2022-09-19] MEDS: ZINC SULFATE 220mg CAP or TAB PO SCH (09:37)
[2022-09-19] MEDS: ASCORBIC ACID 500 MG TAB PO SCH ×2 (09:37→21:20)
[2022-09-19] MEDS: busPIRone HCL 10 MG TAB PO SCH ×2 (09:37→21:22)
[2022-09-19] MEDS: METOPROLOL TARTRATE 25 MG TAB PO SCH ×2 (09:38→21:21)
[2022-09-19] MEDS: MUPIROCIN 2% OINT 15gm or 22gm FOR MRSA NARES EACHNOSTRI SCH (10:15)
[2022-09-19 12:15] VITALS: BP 108/57
[2022-09-19 16:38] VITALS: BP 115/67
[2022-09-19] MEDS: HYDROcodone-ACET 5/325MG TAB PO PRN (20:22)
[2022-09-19] MEDS: APIXABAN 2.5 MG TAB PO SCH (21:20)
[2022-09-19] MEDS: DONEPEZIL HYDROCHLORIDE 5 MG TAB PO SCH (21:20)
[2022-09-19 22:00] VITALS: BP 121/63
[2022-09-19] MEDS: MORPHINE SULFATE INJ 2 MG/ml SYRG IV PRN (23:09)
[2022-09-20 05:00] VITALS: BP 131/66
[2022-09-20 09:00] VITALS: BP 117/64
[2022-09-20] MEDS: APIXABAN 2.5 MG TAB PO SCH (09:44)
[2022-09-20] MEDS: VANCOMYCIN 1GM/250ML 250 ML IV SCH (09:44)
[2022-09-20] MEDS: busPIRone HCL 10 MG TAB PO SCH (09:44)
[2022-09-20] MEDS: ASCORBIC ACID 500 MG TAB PO SCH (09:44)
[2022-09-20] MEDS: ZINC SULFATE 220mg CAP or TAB PO SCH (09:44)
[2022-09-20] MEDS: MULTIPLE VITAMIN TAB PO SCH (09:44)
[2022-09-20] MEDS: METOPROLOL TARTRATE 25 MG TAB PO SCH (09:45)
[2022-09-20 13:00] VITALS: BP 112/60
[2022-09-20 16:37] VITALS: BP 108/52
[2022-09-20 18:12] VITALS: BP 113/61
== END 2022-09-20 20:16 | DRG 474 ==
LOC: EAST 14:59
PROVIDERS: ADMIT Surgery; ATTEND Internal Medicine
PROC: 0Y6D0Z3 Detachment at Left Upper Leg, Low, Open Approach (ICD-10-PCS; principal; 2022-09-15 10:00)
DX: T87.44 Infection of amputation stump, left lower extremity (principal); A41.02 Sepsis due to Methicillin resistant Staphylococcus aureus; T87.81 Dehiscence of amputation stump; F20.9 Schizophrenia, unspecified; D64.9 Anemia, unspecified; G40.909 Epilepsy, unspecified, not intractable, without status epilepticus; Y83.8 Other surgical procedures as the cause of abnormal reaction of the patient, or of later complication, without mention of misadventure at the time of the procedure; I10 Essential (primary) hypertension; I73.9 Peripheral vascular disease, unspecified; R15.9 Full incontinence of feces; Y92.89 Other specified places as the place of occurrence of the external cause
CPT/HCPCS: 36415; 71045; 73700; 80048; 80053; 80202; 81001; 85025; 85610; 85730; 86850; 86900; 86901; 86920; 87077; 87081; 87086; 87088; 87186; 87205; 93005; 97163; G0378; J2001; J2185; J2250; J2405; J2543; J2704